=== PATIENT | male | born 1975 | race Caucasian/White ===

== ENCOUNTER → 2018-04-28 17:22 | Outpatient (CLI) | payer BC, SELFPAY ==
[2017-04-03 00:05] VITALS: BMI 23.7
--- NOTE | 2018-04-28 17:25 | RAD_ITS ---
STUDY: X-RAY - LUMBAR SPINE REASON FOR EXAM: Male, 42 years old. Lower back pain. Status post injury last summer. TECHNIQUE: 5 view(s) of the lumbar spine were obtained. COMPARISON: X-ray L-spine 09/24/2014. CT scan abdomen and pelvis 04/03/2017. FINDINGS: Normal lumbar lordosis. There is no substantial scoliosis. There is a normal alignment of the vertebrae. Normal vertebral bodies. There is mild multilevel spondylosis.. There is disc space narrowing at the L5-S1 level, also present on the previous studies, and consistent with degenerative disc disease. The soft tissue structures are unremarkable. RAD/L/S Spine Min 4 Views IMPRESSION: Multilevel degenerative changes. No demonstrated fracture or subluxation. Electronically Signed: Ga Woodruff MD at 5:36 EST , Service support ,
== END ==
PROVIDERS: Family Provider Family Medicine; PCP Family Medicine; Referring Provider Family Medicine; Visit Provider Family Medicine
DX: M54.9 Dorsalgia, unspecified (principal)
CPT/HCPCS: 72110

== ENCOUNTER 2018-05-06 15:52 | Outpatient (RCR) | payer BC, SELFPAY | END 2018-05-06 19:00 | disposition home or self-care (01) | LOC: PT 15:52 | PROVIDERS: Family Provider Family Medicine; PCP Family Medicine; Referring Provider Family Medicine; Visit Provider Family Medicine | DX: M54.9 Dorsalgia, unspecified (principal) ==

== ENCOUNTER → 2018-10-09 16:12 | Outpatient (CLI) | payer BC, SELFPAY ==
--- NOTE | 2018-10-09 16:18 | EKG12_ITS ---
Test Reason : PREOP Blood Pressure : / mmHG Vent. Rate : 072 BPM Atrial Rate : 072 BPM P-R Int : 132 ms QRS Dur : 086 ms QT Int : 372 ms P-R-T Axes : 042 030 014 degrees QTc Int : 407 ms Normal sinus rhythm with sinus arrhythmia Normal ECG Confirmed by JEANNETTE SMITH, PASCALE ([id number]), metropolitan editor EMELYN SAUCEDA ([id number]) on 10/13/2018 2:01:05 PM Referred By: Syed Grant Confirmed By:PASCALE MACHADO MD
== END ==
PROVIDERS: Family Provider Family Medicine; PCP Family Medicine; Referring Provider Otolaryngology Otolaryngology/Facial Plastic Surgery; Visit Provider Otolaryngology Otolaryngology/Facial Plastic Surgery
DX: Z01.818 Encounter for other preprocedural examination (principal)
CPT/HCPCS: 93005

== ENCOUNTER → 2018-10-21 15:02 | Outpatient (CLI) | payer BC, SELFPAY ==
[2017-04-03 00:05] VITALS: BMI 23.7
--- NOTE | 2018-10-21 | SEP_PTH ---
PATIENT: MARIAM FORD Jr. LOC: [facility]#:[id number] AGE/SX: 49/M ROOM: RE10/21/[address]: Dr. Syed Grant MD : [id number] BED: DIS: SPEC #: [id number] RECD: 10/21/18 14:59 STATUS: NATALIIA CINDI #: [id number] NAZ: 10/21/18 00:[address]: Syed Grant DEPT: SURGICAL PATHOLOGY RECD BY: Brooks Lizarraga ENTERED: 10/22/18 14:28 SP TYPE: SEPTUM OTHR DR: Dr. Junior Harmon MD [facility] Tissues: Nasal septum, NOS Procedures: Decalcification bone/plaque Surgery Specimen Level III HEADER OPERATION: Septoplasty resection (partial) inferior turbinates PRE-OP DIAGNOSIS: Obstructive sleep apnea; deviated nasal septum; nasal congestion TISSUE SUBMITTED: Nasal cartilage MICROSCOPIC DIAGNOSIS Nasal cartilage, septoplasty: Hyaline cartilage and bone with reactive change (clinically deviated septum). AM:carie 10/27/18 MICROSCOPIC DESCRIPTION Slides are reviewed. GROSS DESCRIPTION Received in fixative is one container labeled with the patient's name and designated nasal cartilage. The specimen consists of multiple fragments of cartilage and bone that in aggregate measure 2 x 1.5 x 0.4 cm. The entire specimen is submitted in one cassette after decalcification. / SJ:carie 10/22/18 TC:5 CPT: 91956, 67041
== END ==
PROVIDERS: Family Provider Family Medicine; PCP Family Medicine; Referring Provider Otolaryngology Otolaryngology/Facial Plastic Surgery; Visit Provider Otolaryngology Otolaryngology/Facial Plastic Surgery
DX: G47.33 Obstructive sleep apnea (adult) (pediatric) (principal); R09.81 Nasal congestion; J34.2 Deviated nasal septum
CPT/HCPCS: 88304; 88311

== ENCOUNTER 2021-07-10 10:21 | Outpatient (CLI) | payer OTHER, SELFPAY ==
[2021-07-10 12:51] LABS: Anion Gap 7 (5-15); BUN 11 mg/dL (7-18); BUN/Creat Ratio 10.8 RATIO (10-20); Calcium,Total 8.7 mg/dL (8.5-10.1); Chloride 102 mmol/L (98-107); Cholesterol 182 mg/dL (200); Creatinine, Serum 1.02 mg/dL (0.70-1.30); EST Glomerular Filtration Rate 83 mL/min (>60); Est Glom Filt Rate - Afr Amer 100 mL/min (>60); Glucose 96 mg/dL (74-106); High Density Lipoprotein 63 mg/dL; Potassium 4.3 mmol/L (3.5-5.1); Sodium Level 137 mmol/L (136-145); Triglycerides 91 mg/dL; Very Low Density Lipoprotein 18 mg/dL (5-40)
== END 2021-07-10 23:59 | disposition home or self-care (01) ==
LOC: MFPLAB 10:24
PROVIDERS: PCP Family Medicine; Visit Provider Family Medicine
DX: Z13.1 Encounter for screening for diabetes mellitus (principal); Z13.220 Encounter for screening for lipoid disorders
CPT/HCPCS: 36415; 80048; 80061

== ENCOUNTER → 2022-08-20 | Outpatient (CLI) | payer OTHER, SELFPAY ==
[2022-08-20 12:10] LABS: Erythrocyte Sedimentation Rate 2 mm/hr (0-20)
[2022-08-20 12:14] LABS: Absolute Lymphocyte Count 0.83 X10^3/uL (0.83-4.51); Absolute Neutrophil Count 2.4 X10^3/uL (2.0-7.7); Basophil# 0.06 X10^3/uL; Basophil% 1.5 % (0-1); Eosinophil# 0.29 X10^3/uL; Eosinophils% 7.5 % (0-5); Hematocrit 46.5 % (40-54); Hemoglobin 15.8 g/dL (13.0-16.5); Lymphocyte # 0.83 X10^3/ul (0.83-4.51); Lymphocyte % 21.3 % (19-41); Mean Corpuscular Hgb 30.9 pg (27.0-32.0); Mean Corpuscular Volume 90.8 fL (80-94); Mean Platelet Vol. 10.5 fl (6.2-12.0); Monocyte# 0.31 X10^3/uL; NRBC Flagged by Analyzer 0 % (0-5); Neutrophil # 2.39 X10^3/uL (2.7-7.7); Neutrophil % 61.4 % (47-70); Platelet Count 169 K/mm3 (150-450); RBC Distribution Width CV 11.8 % (11.6-14.6); RBC Distribution Width SD 39.2 fl (35.1-43.9); Red Blood Count 5.12 M/mm3 (4.6-6.2); White Blood Count 3.9 K/mm3 (4.4-11.0)
[2022-08-20 12:24] LABS: Vitamin B12 353 pg/mL (211-911); Vitamin D,25 Hydroxy 31.9 ng/mL
[2022-08-20 12:28] LABS: ALB/GLOB Ratio 1.1 RATIO (0.9-2.4); AST(SGOT) 19 U/L (15-37); Alanine Aminotransfer ALT/SGPT 27 U/L (16-61); Albumin, Serum 3.7 g/dL (3.2-5.0); Alkaline Phosphatase 63 U/L (45-117); Anion Gap 8 (5-15); BUN 12 mg/dL (7-18); BUN/Creat Ratio 11.4 RATIO (10-20); CRP < 2.90 mg/L (0.0-3.0); Calcium,Total 9.2 mg/dL (8.5-10.1); Chloride 107 mmol/L (98-107); Creatinine, Serum 1.05 mg/dL (0.70-1.30); EST Glomerular Filtration Rate 80 mL/min (>60); Est Glom Filt Rate - Afr Amer 96 mL/min (>60); Ferritin 180 ng/mL (26-388); Globulin 3.3 g/dL (2.2-4.2); Glucose 82 mg/dL (74-106); Iron 82 ug/dL (65-175); Potassium 3.9 mmol/L (3.5-5.1); Rheumatoid Factor < 10.0 IU/mL (<15); Sodium Level 139 mmol/L (136-145); Thyroid Stim Hormone (TSH) 1.38 uIU/mL (0.358-3.74); Uric Acid 6.3 mg/dL (3.5-7.2)
[2022-08-21 13:08] LABS: ANTINUCLEAR ANTIBODIES DIRECT Negative (Negative)
[2022-08-22 17:07] LABS: Lyme IgG P18 Ab Absent (.); Lyme IgG P23 Ab Absent (.); Lyme IgG P28 Ab Absent (.); Lyme IgG P30 Ab Absent (.); Lyme IgG P39 Ab Absent (.); Lyme IgG P41 Ab Absent (.); Lyme IgG P45 Ab Absent (.); Lyme IgG P58 Ab Absent (.); Lyme IgG P66 Ab Absent (.); Lyme IgG P93 Ab Absent (.); Lyme IgG WB Interpretation Negative (.); Lyme IgM P23 Ab Absent (.); Lyme IgM P39 Ab Absent (.); Lyme IgM P41 Ab Absent (.); Lyme IgM WB Interpretation Negative (.)
== END | disposition home or self-care (01) ==
LOC: MFPLAB 09:15
PROVIDERS: PCP Family Medicine; Visit Provider Family Medicine
DX: R53.83 Other fatigue (principal); M25.50 Pain in unspecified joint
CPT/HCPCS: 36415; 80053; 82306; 82607; 82728; 83540; 84443; 84550; 85025; 85652; 86038; 86140; 86431; 86617

== ENCOUNTER → 2022-10-29 | Outpatient (CLI) | payer OTHER, SELFPAY ==
[2022-10-29 10:41] LABS: Vitamin B12 448 pg/mL (211-911); Vitamin D,25 Hydroxy 35.3 ng/mL
[2022-10-29 10:47] LABS: Anion Gap 4 (5-15); BUN 15 mg/dL (7-18); BUN/Creat Ratio 14.7 RATIO (10-20); Calcium,Total 8.8 mg/dL (8.5-10.1); Chloride 106 mmol/L (98-107); Cholesterol 184 mg/dL (200); Creatinine, Serum 1.02 mg/dL (0.70-1.30); EST Glomerular Filtration Rate 82 mL/min (>60); Est Glom Filt Rate - Afr Amer 100 mL/min (>60); Glucose 100 mg/dL (74-106); High Density Lipoprotein 56 mg/dL; Potassium 4.4 mmol/L (3.5-5.1); Sodium Level 137 mmol/L (136-145); Triglycerides 140 mg/dL; Very Low Density Lipoprotein 28 mg/dL (5-40)
== END | disposition home or self-care (01) ==
PROVIDERS: PCP Family Medicine; Referring Provider Family Medicine; Visit Provider Family Medicine
DX: Z13.220 Encounter for screening for lipoid disorders (principal); Z13.1 Encounter for screening for diabetes mellitus; R79.89 Other specified abnormal findings of blood chemistry; R53.83 Other fatigue; E53.8 Deficiency of other specified B group vitamins
CPT/HCPCS: 36415; 80048; 80061; 82306; 82607; 84403